=== PATIENT | female | born 1995 | race Caucasian/White ===

== ENCOUNTER → 2017-01-05 | Outpatient (CLI) | payer OTHER ==
--- NOTE | 2017-01-05 11:40 | RAD ---
Sacrococcygeal radiographs History: Fall one week ago, coccygeal pain and swelling. Comparison: None. Findings: Frontal and lateral views of the sacrum and coccyx, 3 images. No displaced fracture is identified. Impression: No sacrococcygeal fracture identified.
== END | disposition home or self-care (01) ==
LOC: DXRADRC 09:14
PROVIDERS: ATTEND Physician Assistant Medical
DX: M53.3 Sacrococcygeal disorders, not elsewhere classified (principal); W19.XXXD Unspecified fall, subsequent encounter
CPT/HCPCS: 72220